=== PATIENT | male | born 1960 | race Caucasian/White ===

== ENCOUNTER 2018-10-21 10:26 | Inpatient (IN) | payer MEDICARE, MEDICAID ==
[~2018-10-21] VITALS: Ht 180.3 cm; Wt 103.9 kg
--- NOTE | 2018-10-21 10:45 | NUR ---
PT TO ED FOR WEAKNESS WITH EVIDENCE OF MULTIPLE FALLS. WHEEL PRESS OPERATOR VISITED THIS AM AND BECAME WORRIED ABOUT WEAKNESS AND LETHARGY. PT IS A POOR HISTORIAN AND IS UNABLE TO ACCURATELY RECALL LAST FALL. SCARLETT THROUGHOUT. PLACED ON O2. MD ASSESSMENT COMPLETE. CONNECTED TO ALL MONITORS. HYPOTENSIVE IN FIELD AT 80/59. 95/56 UPON ARRIVAL. PER MD, WILL CONTINUE PREHOSPITAL FLUIDS. ALL OTHER VSS. NO NEEDS AT THIS TIME. AWAITING ORDERS.
[2018-10-21] MEDS ORDERED: PLEASE ENTER ALLERGIES MC SCH (11:00)
--- NOTE | 2018-10-21 11:05 | NUR ---
pt to imaging
[2018-10-21] MEDS ORDERED: benztropine (11:13)
[2018-10-21] MEDS ORDERED: oxybutynin (11:13)
[2018-10-21] MEDS ORDERED: metoprolol (11:13)
[2018-10-21] MEDS ORDERED: ZIPRASIDONE (11:13)
[2018-10-21] MEDS ORDERED: levothyroxine (11:13)
[2018-10-21] MEDS ORDERED: divalproex (11:13)
[2018-10-21] MEDS ORDERED: simvastatin (11:13)
--- NOTE | 2018-10-21 11:14 | NUR ---
pt requested that this rn call his brother Tam Arora to inform him that pt is here and to request a visit. Tam's phone number given by pt ([phone]) is disconnected at this time.
[2018-10-21] MEDS ORDERED: SODIUM CHLORIDE FLUSH 10ML SYR IVF ONE (12:00)
--- NOTE | 2018-10-21 12:05 | NUR ---
REPORT TAKEN FROM ROS HERNANDEZ, ASSUMING CARE AT THIS TIME.
--- NOTE | 2018-10-21 12:14 | NUR ---
NURSE TO NURSE REPORT DONE AT BEDSIDE. PT UNABLE TO STATE LOCATION, TIME, SITUATION. WHEN ASKED NAME, PT LOOKED AT [employer] AND STATES "KATHE." PT IS AWAKE AND ALERT. NEURO INTACT. NO DRIFT, BILATERAL VETERINARY TOXICOLOGIST STRENGTH EQUAL, FULL STRENGTH TO ALL EXTREMITIES. PER ROS HERNANDEZ, PT UNKNOWN LAST WELL TIME, PT FOUND BY ROAD SERVICE LOCKSMITH THIS AM IN HOME WITH NO PANTS ON. PT TO CT AT THIS TIME. PER PREVIOUS RN, PT WAS UNABLE TO VOID, PT STRAIGHT CATH'D BY ROS HERNANDEZ WITH 2L OUTPUT URINE. LABS AND URINE PENDING.
--- NOTE | 2018-10-21 12:30 | NUR ---
CAITY VO NOTIFIED PT IS A&O ONLY TO PERSON AND IN CT AT THIS TIME.
[2018-10-21 12:33] LABS: AMPHETAMINE SCREEN, URINE Negative (Negative); BARBITURATE SCREEN, URINE Negative (Negative); BENZODIAZEPINE SCREEN, URINE Negative (Negative); CANNABINOID SCREEN, URINE Negative (Negative); COCAINE SCREEN, URINE Negative (Negative); METHADONE SCREEN, URINE Negative (Negative); OPIATE SCREEN, URINE Negative (Negative)
[2018-10-21 12:37] LABS: INTERNATIONAL NORMALIZED RATIO 1.34 (0.93-1.1)
[2018-10-21 12:41] LABS: ALANINE AMINOTRANSFERASE 190 U/L (12-78); ALBUMIN 2.5 g/dL (3.4-5.0); ANION GAP 13 mmol/L (5-15); CALCIUM 9.3 mg/dL (8.5-10.1); CHLORIDE 82 mmol/L (98-107); CREATININE 2.08 mg/dL (0.7-1.3)
[2018-10-21 12:43] LABS: MICROSCOPIC INDICATED
[2018-10-21 12:44] LABS: ALKALINE PHOSPHATASE 400 U/L (45-117); TOTAL PROTEIN 5.6 g/dL (6.4-8.2); TROPONIN I < 0.015 ng/mL (0.000-0.045)
--- NOTE | 2018-10-21 12:54 | NUR ---
PT BACK FROM CT. PT A&O TO PERSON AND PLACE. NEURO INTACT. ALL MONITORS REAPPLIED. MD UPDATED WITH UPDATED VS.
[2018-10-21] MEDS ORDERED: LORazepam 2 MG/ML, 1ML IVPush PRN (13:00)
[2018-10-21 13:06] LABS: MEAN CORPUSCULAR HEMOGLOBIN 32.6 pg (27.5-34.5); MEAN CORPUSCULAR VOLUME 95.8 fL (81-97); MEAN PLATELET VOLUME 7.9 fL (7.4-10.4); PLATELET COUNT 10 x10^3/uL (130-400); RED BLOOD COUNT 3.93 x10^6/uL (4.38-5.82); RED CELL DISTRIBUTION WIDTH 14.8 % (9.4-14.8)
--- NOTE | 2018-10-21 13:06 | NUR ---
PT FOUND OUT OF BED, SITTER REQUESTED FROM SMALL ENGINE SPECIALIST. SITTER MONITORING FROM [facility] FOR SAFETY AT THIS TIME.
[2018-10-21 13:18] LABS: MD YES
[2018-10-21 13:21] LABS: BAND#(MANUAL) 0.62 x10^3/uL; BANDS%(MANUAL) 12 % (0-7); LYMPH#(MANUAL) 1.25 x10^3/uL (1-3.4); LYMPHS% (MANUAL) 24 % (22-44); METAMYELOCYTES# (MANUAL) 0.05 x10^3/uL (0-0); METAMYELOCYTES% (MANUAL) 1 % (0-1); MONOS#(MANUAL) 0.05 x10^3/uL (0.3-2.7); MONOS% (MANUAL) 1 % (2-9); MYELOCYTES# (MANUAL) 0.05 x10^3/uL (0-0); MYELOCYTES% (MANUAL) 1 % (0-0); NRBC % (MANUAL) 1 % (0-1); SEG#(MANUAL) 3.17 x10^3/uL (1.8-6.8); SEGS% (MANUAL) 61 % (42-75)
[2018-10-21 13:23] LABS: CULTURE INDICATED? NO
[2018-10-21 13:25] LABS: <RBC MORPHOLOGY> NORMAL
[2018-10-21 13:26] LABS: <PLT MORPHOLOGY> QNS FOR PLT MORPH
[2018-10-21 13:27] LABS: <PLATELET ESTIMATE> DECREASED
[2018-10-21] MEDS ORDERED: CALCIUM GLUCONATE 4.6 MEQ in SODIUM CHLORIDE 0.9% 50 ML IV ONE (13:30)
[2018-10-21] MEDS ORDERED: INSULIN REGULAR 100 UNITS/ML, 3ML VIAL IVPush ONE (13:30)
[2018-10-21] MEDS ORDERED: DEXTROSE 50%, 50ML SYRINGE IVPush ONE (13:30)
[2018-10-21] MEDS ORDERED: LORazepam 2 MG/ML, 1ML ONE (13:32)
--- NOTE | 2018-10-21 13:36 | NUR ---
PT PULLED OUT PIV AND TOOK OFF MONTIORS DESPITE SITTER. FARMWORKER FRUIT NOTIFIED, EDMD NOTIFIED. COMPRESSION DRESSING APPLIED TO PIV SITE. TIP INTACT. NEW PIV PLACED TO LEFT SHOULDER, ATIVAN GIVEN WITH EDMD OK FOR PT AGITATION (EDMD AWARE PRIOR TO ATIVAN ADMIN). IVF INFUSING TO NEW PIV SITE. US AT BEDSIDE. SITTER MONITORING FOR SAFETY.
[2018-10-21] MEDS ORDERED: DEXTROSE 50%, 50ML SYRINGE ONE (13:54)
[2018-10-21] MEDS ORDERED: INSULIN REGULAR 100 UNITS/ML, 3ML VIAL ONE (13:54)
[2018-10-21] MEDS ORDERED: LORazepam 2 MG/ML, 1ML IVPush ONE (14:00)
[2018-10-21] MEDS ORDERED: SODIUM CHLORIDE 0.9% 1,000ML IVBOLUS ONE ×2 (14:00→19:00)
--- NOTE | 2018-10-21 14:10 | NUR ---
PT SLEEPING, RESPS EVEN AND UNLABORED. ALL MONITORS IN PLACE. PT MEDICATED PER EMAR, TOLERATED WELL. NSR ON SHANK STITCHER. AWAITING CCU BED AND TRANSPORT AT THIS TIME.
[2018-10-21] MEDS ORDERED: OXYcodone IR 5MG TABLET PO PRN (14:30)
[2018-10-21] MEDS ORDERED: ENALAPRILAT 1.25 MG/ML, 2ML IVPush PRN (14:30)
[2018-10-21] MEDS ORDERED: ONDANSETRON 2MG/ML, 2ML IVPush PRN (14:30)
[2018-10-21] MEDS ORDERED: ENOXAPARIN 40 MG/0.4 ML SQ SCH (14:30)
[2018-10-21] MEDS ORDERED: ACETAMINOPHEN 325 MG TABLET PO PRN (14:30)
[2018-10-21] MEDS ORDERED: POLYETHYLENE GLYCOL 17 GM PACKET PO PRN (14:30)
[2018-10-21] MEDS ORDERED: LABETALOL 5MG/ML, 20ML IVPush PRN (14:30)
[2018-10-21] MEDS ORDERED: BISACODYL 10 MG SUPP PR PRN (14:30)
--- NOTE | 2018-10-21 14:37 | NUR ---
REPORT TO RN DASHA AT BEDSIDE, REPEAT BP 82/44 AT THIS TIME, EDMD GILDA NOTIFIED. SITTER AT BEDSIDE.
[2018-10-21] MEDS ORDERED: CEFTRIAXONE PMX 1GM/50ML 50 ML ONE (14:54)
[2018-10-21] MEDS: CEFTRIAXONE PMX 1GM/50ML 50 ML IV SCH (14:57)
[2018-10-21] MEDS: SODIUM CHLORIDE 0.9% 1,000 ML IV SCH ×3 (14:57→22:50)
--- NOTE | 2018-10-21 15:12 | NUR ---
PT OPENS EYES TO NAME, FOLLOWS COMMANDS IE: SQUEEZED MY HANDS, WIGGLE YOUR TOES. PT WITH MUMBLED SPEECH, DIFFICULT TO UNDERSTAND. STATES YEAR "2019" SR PER MONITOR. NS BOLUS COMPLETE, IV ABX INFUSING. ATTEMPTING TO OBTAIN 2ND IV SITE. SEIZURE PADS IN PLACE. SITTER AT BEDSIDE.
--- NOTE | 2018-10-21 15:35 | NUR ---
PT PLACED ON WAFFLE MATTRESS. PT MOSTLY SLEEPING AT THIS TIME, AROUSES TO NAME, FOLLOWS COMMANDS IE:WIGGLE YOUR TOES. IV ABX INFUSING ORDERED. SITTER AT DOOR. WAITING FOR ROOM ASSIGNMENT.
--- NOTE | 2018-10-21 15:55 | NUR ---
REPORT TO HERNAN SOMMER
--- NOTE | 2018-10-21 15:56 | NUR ---
REPORT TAKEN FROM ROS LOU AT BEDSIDE. PT SLEEPING, RESPS EVEN AND UNLABORED. SEIZURE PRECAUTIONS IN PLACE. SITTER AT BEDSIDE. VSS. 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
[2018-10-21] MEDS: DOXYCYCLINE 100 MG in DEXTROSE 5% 250 ML IV SCH (16:21)
--- NOTE | 2018-10-21 16:34 | NUR ---
REPORT CALLED TO RECEIVING ROS DHALIWAL.
--- NOTE | 2018-10-21 16:34 | NUR ---
late entry for 1634 d/t patient care: report called to receiving ROS Cruz. pt awaiting transport to room 551.
--- NOTE | 2018-10-21 16:36 | NUR ---
PT AWAKENS TO VOICE, PT A&O TO PERSON, PLACE, SITUATION AND YEAR. PT HAS EQUAL STRENGTH TO ALL EXTREMITIES, NO DRIFT, EQUAL GRASP BILATERALLLY. PT FOLLOWING COMMANDS. ZITHROMAX INFUSING. PT TO BE TRANSPORTED TO ROOM 551.
[2018-10-21 17:45] VITALS: BP 98/48
[2018-10-21 18:30] LABS: ANION GAP 13 mmol/L (5-15); CALCIUM 8.7 mg/dL (8.5-10.1); CHLORIDE 87 mmol/L (98-107); CREATININE 1.94 mg/dL (0.7-1.3)
[2018-10-21] MEDS ORDERED: SODIUM CHLORIDE 0.9% 1,000 ML IV SCH (19:00)
[2018-10-21 22:15] LABS: ANION GAP 13 mmol/L (5-15); CALCIUM 8.3 mg/dL (8.5-10.1); CHLORIDE 88 mmol/L (98-107); CREATININE 1.84 mg/dL (0.7-1.3)
[2018-10-21] MEDS: NOREPINEPHRINE 4 MG in SODIUM CHLORIDE 0.9% 246 ML IV PRN (22:50)
[2018-10-22] VITALS (9 sets, daily range): BP systolic 94–115; BP diastolic 40–56
[2018-10-22 02:18] LABS: ALANINE AMINOTRANSFERASE 209 U/L (12-78); ALBUMIN 2.2 g/dL (3.4-5.0); ANION GAP 14 mmol/L (5-15); CALCIUM 8.2 mg/dL (8.5-10.1); CHLORIDE 89 mmol/L (98-107); CREATININE 1.87 mg/dL (0.7-1.3)
[2018-10-22 02:20] LABS: ALKALINE PHOSPHATASE 342 U/L (45-117); TOTAL PROTEIN 4.9 g/dL (6.4-8.2)
[2018-10-22] MEDS ORDERED: SODIUM CHLORIDE 0.9% 1,000ML IVBOLUS ONE ×2 (02:30)
[2018-10-22] MEDS: DOXYCYCLINE 100 MG in DEXTROSE 5% 250 ML IV SCH ×2 (02:33→16:40)
[2018-10-22 03:01] LABS: MEAN CORPUSCULAR HEMOGLOBIN 33.6 pg (27.5-34.5); MEAN CORPUSCULAR HGB CONC 35.2 g/dL (33.2-36.2); MEAN CORPUSCULAR VOLUME 95.3 fL (81-97); MEAN PLATELET VOLUME 8.5 fL (7.4-10.4); RED BLOOD COUNT 3.42 x10^6/uL (4.38-5.82); RED CELL DISTRIBUTION WIDTH 14.9 % (9.4-14.8)
[2018-10-22 03:21] LABS: PLATELET COUNT 10 x10^3/uL (130-400)
[2018-10-22 03:38] LABS: MD YES
[2018-10-22 03:41] LABS: BAND#(MANUAL) 0.73 x10^3/uL; BANDS%(MANUAL) 14 % (0-7); EOS#(MANUAL) 0.05 x10^3/uL (0.0-0.4); EOS% (MANUAL) 1 % (1-7); LYMPH#(MANUAL) 0.73 x10^3/uL (1-3.4); LYMPHS% (MANUAL) 14 % (22-44); METAMYELOCYTES# (MANUAL) 0.05 x10^3/uL (0-0); METAMYELOCYTES% (MANUAL) 1 % (0-1); MONOS% (MANUAL) 2 % (2-9); SEG#(MANUAL) 3.54 x10^3/uL (1.8-6.8); SEGS% (MANUAL) 68 % (42-75)
[2018-10-22 03:42] LABS: <PLATELET ESTIMATE> DECREASED; <PLT MORPHOLOGY> QNS FOR PLT MORPH; <RBC MORPHOLOGY> NORMAL
[2018-10-22] MEDS: SODIUM CHLORIDE 0.9% 1,000 ML IV SCH ×2 (05:03→15:35)
[2018-10-22] MEDS: NOREPINEPHRINE 4 MG in SODIUM CHLORIDE 0.9% 246 ML IV PRN ×2 (05:16→15:36)
[2018-10-22 08:52] LABS: ANION GAP 13 mmol/L (5-15); CALCIUM 7.7 mg/dL (8.5-10.1); CHLORIDE 92 mmol/L (98-107); CREATININE 1.77 mg/dL (0.7-1.3)
[2018-10-22] MEDS: SENNA/DOCUSATE TABLET PO SCH (09:00)
[2018-10-22 09:43] LABS: ANION GAP 12 mmol/L (5-15); CALCIUM 7.9 mg/dL (8.5-10.1); CHLORIDE 94 mmol/L (98-107)
[2018-10-22 09:48] LABS: CREATININE 1.76 mg/dL (0.7-1.3)
--- NOTE | 2018-10-22 10:27 | NUR ---
Tf goal in Rd note 10/22 if needed
--- NOTE | 2018-10-22 12:59 | NUR ---
PATIENT'S LIBRARIAN recommend: PUREE/ NTL -No straws -Up at 90 degrees -ONLY WHEN ALERT -Medications crushed orange sheet posted Addendum: 10/22/18 at [address] Amended: Links added.
[2018-10-22 15:04] LABS: ANION GAP 12 mmol/L (5-15); CALCIUM 7.8 mg/dL (8.5-10.1); CHLORIDE 94 mmol/L (98-107); CREATININE 1.69 mg/dL (0.7-1.3)
[2018-10-22] MEDS: CEFTRIAXONE PMX 1GM/50ML 50 ML IV SCH (15:35)
[2018-10-22 19:52] LABS: ANION GAP 11 mmol/L (5-15); CALCIUM 7.8 mg/dL (8.5-10.1); CHLORIDE 96 mmol/L (98-107); CREATININE 1.56 mg/dL (0.7-1.3)
[2018-10-22 23:05] LABS: ANION GAP 8 mmol/L (5-15); CHLORIDE 98 mmol/L (98-107); CREATININE 1.45 mg/dL (0.7-1.3)
[2018-10-23] MEDS: SODIUM CHLORIDE 0.9% 1,000 ML IV SCH ×3 (00:36→18:46)
[2018-10-23] MEDS: DOXYCYCLINE 100 MG in DEXTROSE 5% 250 ML IV SCH ×2 (02:27→15:19)
[2018-10-23 06:36] LABS: ALANINE AMINOTRANSFERASE 221 U/L (12-78); ANION GAP 9 mmol/L (5-15); CHLORIDE 97 mmol/L (98-107); MEAN CORPUSCULAR HEMOGLOBIN 34.2 pg (27.5-34.5); MEAN CORPUSCULAR HGB CONC 35.5 g/dL (33.2-36.2); MEAN CORPUSCULAR VOLUME 96.4 fL (81-97); RED BLOOD COUNT 2.65 x10^6/uL (4.38-5.82); RED CELL DISTRIBUTION WIDTH 14.8 % (9.4-14.8)
[2018-10-23 06:38] LABS: ALKALINE PHOSPHATASE 416 U/L (45-117); BILIRUBIN,TOTAL 1.3 mg/dL (0.2-1.0); TOTAL PROTEIN 4.6 g/dL (6.4-8.2)
[2018-10-23 07:09] LABS: MD YES
[2018-10-23 07:17] LABS: MEAN PLATELET VOLUME 8.2 fL (7.4-10.4)
[2018-10-23 07:21] LABS: PLATELET COUNT 22 x10^3/uL (130-400)
[2018-10-23 07:25] LABS: BAND#(MANUAL) 0.61 x10^3/uL; BANDS%(MANUAL) 13 % (0-7); EOS#(MANUAL) 0.05 x10^3/uL (0.0-0.4); EOS% (MANUAL) 1 % (1-7); LYMPH#(MANUAL) 0.85 x10^3/uL (1-3.4); LYMPHS% (MANUAL) 18 % (22-44); METAMYELOCYTES# (MANUAL) 0.33 x10^3/uL (0-0); METAMYELOCYTES% (MANUAL) 7 % (0-1); MONOS#(MANUAL) 0.14 x10^3/uL (0.3-2.7); MONOS% (MANUAL) 3 % (2-9); MYELOCYTES# (MANUAL) 0.19 x10^3/uL (0-0); MYELOCYTES% (MANUAL) 4 % (0-0); NRBC % (MANUAL) 1 % (0-1); PROGRANULOCYTES# (MANUAL) 0.05 x10^3/uL (0-0); PROGRANULOCYTES% (MANUAL) 1 % (0-0); SEG#(MANUAL) 2.49 x10^3/uL (1.8-6.8); SEGS% (MANUAL) 53 % (42-75)
[2018-10-23 07:30] LABS: <PLATELET ESTIMATE> DECREASED; <PLT MORPHOLOGY> NORMAL PLT MORPH; <RBC MORPHOLOGY> NORMAL
[2018-10-23] MEDS: SENNA/DOCUSATE TABLET PO SCH (09:00)
[2018-10-23 10:54] VITALS: BP 114/49
[2018-10-23 11:17] VITALS: BP 105/49
[2018-10-23 12:06] VITALS: BP 114/56
[2018-10-23] MEDS: CEFTRIAXONE PMX 1GM/50ML 50 ML IV SCH (13:47)
[2018-10-23 16:47] LABS: D-DIMER (DIC) 27.71 ug/mlFEU (0.00-0.52); PROTIME 12.6 Seconds (9.6-11.5)
[2018-10-23 18:15] VITALS: BP 112/59
[2018-10-23 18:45] VITALS: BP 96/51
[2018-10-23 20:28] VITALS: BP 113/54
[2018-10-23 20:45] LABS: POTASSIUM,URINE RANDOM 15 mmol/L; SODIUM,URINE RANDOM 5 mmol/L
[2018-10-23 20:46] LABS: CHLORIDE,URINE RANDOM < 10 mmol/L
[2018-10-23 21:09] LABS: OSMOLALITY,URINE 451 mOsm/kg (500-850)
[2018-10-24] VITALS (12 sets, daily range): BP systolic 105–139; BP diastolic 46–72
[2018-10-24] MEDS: DOXYCYCLINE 100 MG in DEXTROSE 5% 250 ML IV SCH ×2 (02:55→14:42)
[2018-10-24] MEDS: SODIUM CHLORIDE 0.9% 1,000 ML IV SCH (04:43)
[2018-10-24 04:53] LABS: MEAN CORPUSCULAR HGB CONC 35.2 g/dL (33.2-36.2); MEAN CORPUSCULAR VOLUME 96.7 fL (81-97); MEAN PLATELET VOLUME 7.6 fL (7.4-10.4); PLATELET COUNT 50 x10^3/uL (130-400); RED BLOOD COUNT 2.38 x10^6/uL (4.38-5.82); RED CELL DISTRIBUTION WIDTH 14.9 % (9.4-14.8)
[2018-10-24 05:03] LABS: INTERNATIONAL NORMALIZED RATIO 1.29 (0.93-1.1); PROTHROMBIN TIME 13.4 Seconds (9.6-11.5)
[2018-10-24 05:05] LABS: ALBUMIN 2.2 g/dL (3.4-5.0); ANION GAP 9 mmol/L (5-15); CALCIUM 8.8 mg/dL (8.5-10.1); CHLORIDE 104 mmol/L (98-107)
[2018-10-24 05:09] LABS: ALANINE AMINOTRANSFERASE 185 U/L (12-78); ALKALINE PHOSPHATASE 439 U/L (45-117); BILIRUBIN,TOTAL 1.5 mg/dL (0.2-1.0); CREATININE 1.26 mg/dL (0.7-1.3); TOTAL PROTEIN 4.8 g/dL (6.4-8.2)
[2018-10-24 05:21] LABS: MD YES
[2018-10-24 05:49] LABS: BAND#(MANUAL) 1.36 x10^3/uL; BANDS%(MANUAL) 20 % (0-7); LYMPH#(MANUAL) 1.63 x10^3/uL (1-3.4); LYMPHS% (MANUAL) 24 % (22-44); METAMYELOCYTES# (MANUAL) 0.48 x10^3/uL (0-0); METAMYELOCYTES% (MANUAL) 7 % (0-1); MONOS#(MANUAL) 0.27 x10^3/uL (0.3-2.7); MONOS% (MANUAL) 4 % (2-9); MYELOCYTES# (MANUAL) 0.41 x10^3/uL (0-0); MYELOCYTES% (MANUAL) 6 % (0-0); SEG#(MANUAL) 2.65 x10^3/uL (1.8-6.8); SEGS% (MANUAL) 39 % (42-75)
[2018-10-24 05:50] LABS: <PLATELET ESTIMATE> DECREASED; <PLT MORPHOLOGY> NORMAL PLT MORPH; POLYCHROMASIA 1+
[2018-10-24] MEDS: SENNA/DOCUSATE TABLET PO SCH (09:00)
[2018-10-24] MEDS ORDERED: SODIUM CHLORIDE 0.9% 1,000 ML IV SCH (09:00)
[2018-10-24] MEDS ORDERED: OMNIPAQUE 350 MG/ML, 100ML BOTTLE ONE (10:04)
[2018-10-24 13:50] LABS: MD YES; MEAN CORPUSCULAR HEMOGLOBIN 32.8 pg (27.5-34.5); MEAN CORPUSCULAR HGB CONC 33.5 g/dL (33.2-36.2); MEAN CORPUSCULAR VOLUME 97.8 fL (81-97); MEAN PLATELET VOLUME 7.4 fL (7.4-10.4); RED BLOOD COUNT 2.49 x10^6/uL (4.38-5.82); RED CELL DISTRIBUTION WIDTH 15.5 % (9.4-14.8)
[2018-10-24 13:55] LABS: D-DIMER (DIC) 32.09 ug/mlFEU (0.00-0.52); PROTIME 13.1 Seconds (9.6-11.5)
[2018-10-24] MEDS: CEFTRIAXONE PMX 1GM/50ML 50 ML IV SCH (13:56)
[2018-10-24 14:00] LABS: BAND#(MANUAL) 1.23 x10^3/uL; BANDS%(MANUAL) 16 % (0-7); EOS#(MANUAL) 0.08 x10^3/uL (0.0-0.4); EOS% (MANUAL) 1 % (1-7); LYMPH#(MANUAL) 1.62 x10^3/uL (1-3.4); LYMPHS% (MANUAL) 21 % (22-44); METAMYELOCYTES# (MANUAL) 0.62 x10^3/uL (0-0); METAMYELOCYTES% (MANUAL) 8 % (0-1); MONOS#(MANUAL) 0.77 x10^3/uL (0.3-2.7); MONOS% (MANUAL) 10 % (2-9); MYELOCYTES# (MANUAL) 0.62 x10^3/uL (0-0); MYELOCYTES% (MANUAL) 8 % (0-0); OTHER CELLS # (MANUAL) 0.08 x10^3/uL (0-0); OTHER CELLS % (MANUAL) 1 % (0-0); SEGS% (MANUAL) 35 % (42-75)
[2018-10-24 14:01] LABS: <PLATELET ESTIMATE> DECREASED; <PLT MORPHOLOGY> NORMAL PLT MORPH; POLYCHROMASIA 1+
[2018-10-24 14:02] LABS: PLATELET COUNT 47 x10^3/uL (130-400)
[2018-10-25] MEDS ORDERED: LORazepam 2 MG/ML, 1ML ONE (01:53)
[2018-10-25] MEDS ORDERED: LORazepam 2 MG/ML, 1ML IVPush ONE (02:00)
[2018-10-25] MEDS: DOXYCYCLINE 100 MG in DEXTROSE 5% 250 ML IV SCH (02:04)
[2018-10-25 05:25] LABS: ALBUMIN 2.4 g/dL (3.4-5.0); ANION GAP 10 mmol/L (5-15); CALCIUM 9.3 mg/dL (8.5-10.1); CHLORIDE 102 mmol/L (98-107)
[2018-10-25 05:29] LABS: ALANINE AMINOTRANSFERASE 168 U/L (12-78); ALKALINE PHOSPHATASE 437 U/L (45-117); BILIRUBIN,TOTAL 1.9 mg/dL (0.2-1.0); CREATININE 1.18 mg/dL (0.7-1.3); TOTAL PROTEIN 5.2 g/dL (6.4-8.2)
[2018-10-25 05:36] LABS: D-DIMER (DIC) 33.18 ug/mlFEU (0.00-0.52); PROTIME 13.8 Seconds (9.6-11.5)
[2018-10-25 05:40] LABS: MEAN CORPUSCULAR HEMOGLOBIN 34.3 pg (27.5-34.5); MEAN CORPUSCULAR HGB CONC 35.2 g/dL (33.2-36.2); MEAN CORPUSCULAR VOLUME 97.4 fL (81-97); RED BLOOD COUNT 2.29 x10^6/uL (4.38-5.82); RED CELL DISTRIBUTION WIDTH 15.3 % (9.4-14.8)
[2018-10-25 06:13] LABS: MD YES; MEAN PLATELET VOLUME 7.8 fL (7.4-10.4); PLATELET COUNT 55 x10^3/uL (130-400)
[2018-10-25 06:17] LABS: BAND#(MANUAL) 1.65 x10^3/uL; BANDS%(MANUAL) 19 % (0-7); LYMPH#(MANUAL) 0.87 x10^3/uL (1-3.4); LYMPHS% (MANUAL) 10 % (22-44); METAMYELOCYTES# (MANUAL) 0.44 x10^3/uL (0-0); METAMYELOCYTES% (MANUAL) 5 % (0-1); MONOS#(MANUAL) 0.61 x10^3/uL (0.3-2.7); MONOS% (MANUAL) 7 % (2-9); MYELOCYTES# (MANUAL) 0.61 x10^3/uL (0-0); MYELOCYTES% (MANUAL) 7 % (0-0); NRBC % (MANUAL) 2 % (0-1); PROGRANULOCYTES# (MANUAL) 0.09 x10^3/uL (0-0); PROGRANULOCYTES% (MANUAL) 1 % (0-0); SEG#(MANUAL) 4.44 x10^3/uL (1.8-6.8); SEGS% (MANUAL) 51 % (42-75)
[2018-10-25 06:18] LABS: <PLATELET ESTIMATE> DECREASED; <PLT MORPHOLOGY> NORMAL PLT MORPH; POLYCHROMASIA 1+
[2018-10-25] MEDS: SENNA/DOCUSATE TABLET PO SCH (08:58)
[2018-10-25] MEDS ORDERED: LORazepam 2 MG/ML, 1ML IVPush PRN (12:30)
[2018-10-25] MEDS ORDERED: SCOPOLAMINE PATCH, 1.5MG PATCH.TD72 TD SCH (12:30)
[2018-10-25] MEDS ORDERED: MORPHINE SULFATE 4 MG/ML, 1ML IVPush PRN ×2 (12:30)
[2018-10-25] MEDS: SCOPOLAMINE PATCH, 1.5MG PATCH.TD72 TD SCH (14:21)
[2018-10-26] MEDS: SCOPOLAMINE PATCH, 1.5MG PATCH.TD72 TD SCH (01:18)
== END 2018-10-26 18:00 | disposition expired | DRG 871 ==
LOC: ED 13:25 → EDIP 13:30 → ED 13:55 → CCU 16:24 → ICU 10-22 11:41 → CCU 10-23 17:18 → 3NW 10-25 14:22
PROVIDERS: ADMIT Internal Medicine; ATTEND Internal Medicine
PROC: 02HV33Z Insertion of Infusion Device into Superior Vena Cava, Percutaneous Approach (ICD-10-PCS; principal; 2018-10-22)
PROC: B548ZZA Ultrasonography of Superior Vena Cava, Guidance (ICD-10-PCS; 2018-10-22)
PROC: 30233R1 Transfusion of Nonautologous Platelets into Peripheral Vein, Percutaneous Approach (ICD-10-PCS; 2018-10-22)
PROC: 30233K1 Transfusion of Nonautologous Frozen Plasma into Peripheral Vein, Percutaneous Approach (ICD-10-PCS; 2018-10-24)
DX: A41.9 Sepsis, unspecified organism (principal); R65.21 Severe sepsis with septic shock; G93.41 Metabolic encephalopathy; K72.00 Acute and subacute hepatic failure without coma; N17.0 Acute kidney failure with tubular necrosis; D65 Disseminated intravascular coagulation [defibrination syndrome]; C78.7 Secondary malignant neoplasm of liver and intrahepatic bile duct; D62 Acute posthemorrhagic anemia; E87.1 Hypo-osmolality and hyponatremia; N13.30 Unspecified hydronephrosis; C34.90 Malignant neoplasm of unspecified part of unspecified bronchus or lung; E03.9 Hypothyroidism, unspecified; E78.5 Hyperlipidemia, unspecified; E86.1 Hypovolemia; E87.5 Hyperkalemia; F20.9 Schizophrenia, unspecified; I10 Essential (primary) hypertension; N26.1 Atrophy of kidney (terminal); R29.6 Repeated falls; Z51.5 Encounter for palliative care; Z87.891 Personal history of nicotine dependence
CPT/HCPCS: 36415; 36573; 70450; 71045; 71260; 74177; 76700; 80048; 80053; 80164; 80307; 81001; 82105; 82140; 82378; 82436; 82533; 83605; 83690; 83735; 83935; 84100; 84133; 84145; 84295; 84300; 84443; 84484; 85025; 85049; 85379; 85384; 85610; 85730; 86301; 86850; 86900; 87040; 87081; 93005; 93970; 99291; G0378; J0610; J0696; J2270; J7060; Q9967; C1751; J2060; J7030; J7050; P9017; P9035